=== PATIENT | female | born 2005 | race Caucasian/White ===

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

== ENCOUNTER 2024-06-06 18:00 | Outpatient (RCR) | payer OTHER, SELFPAY ==
--- NOTE | 2024-05-04 15:35 | HP.PTEVAL_ITS ---
Patient's Visit Information Visit Information Visit Information: MELI WHITTAKER is a 19 year old F referred to Physical Therapy by JOEY LAFLEUR with a diagnosis of COMPLEX TEAR LAT MENISCUS L KNEE. S/P MENISECTOMY 04/08/24. Date of Evaluation: 05/02/24 Physical Therapist: Teresa Reyes, PT, Cert MDT Visit Plan Frequency: 2x /Week Duration: 4-6 Weeks Plan: MONITOR INCISIONS EACH VISIT UNTIL FULLY HEALED. L KNEE ESTIM, CP AND VASO NEEDED FOR PAIN AND EDEMA CONTROL. L LE OPEN AND CLOSED CHAIN ROM AND STRENGTHENING. CORE STRENGTHEING. GAIT TRAINING AND HEP INSTRUCTION. Subjective Subjective: Work/Leisure: STUDENT AT THE [employer]. FROM [place]. [employer] Present symptoms: ANTERIOR AND POSTERIOR L KNEE PAIN, DISTAL ANTERIOR THIGH PAIN, HARPER PAIN AND CALF PAIN. DENIES NUMBNESS AND TINGLING. L KNEE SWELLING. Present since: DEC 27 2023 Pain Scale: WORST 7/10, LEAST 1/10 Currently: 3-4/10 Is it getting better, worse or staying the same: PAIN IS STAYING THE SAME. MOBILITY IS GETTING BETTER. Commenced as a result of: PLAYING [employer] AT SCHOOL. DURING PRACTICE FELT A BUBBLE UNDER KNEE CAP AND TWO DAYS LATER DURING SCRIMMAGE TWISTED KNEE AND FELT A POP. Symptoms at onset: A LOT OF PAIN AND SWELLING. Worse: PROLONGED WALKING, PROLONGED STATIONARY POSITIONS. Better: FREQUENT CHANGE OF POSITION, ICE, IBUPROFEN, MVMT. Disturbed sleep: NO Previous history/Previous treatment: NO PRIOR INJURIES Treatment this episode: MENISECTOMY 04/08/24. PT X 3 VISITS IN [place] AFTER JOSE M RUIZ. OTC ADVIL. Gait: INDEP GAIT WITHOUT AD. DENIES LIMP. HAS NOT TRIED JOGGING OR RUNNING. GOING DOWN STEPS IN THE MORNINGS ESPECIALLY IS DIFFICULTY. DOING GOOD GOING UP. RESTRICTIONS: DENIES ANY PHYSICIAN RESTRICTIONS. NO SURGICAL FOLLOW UPS SCHEDULED - RELEASED TO FULL ACTIVITY IN A FEW WEEKS. PMH/Recent major surgery: SLEEP APNEA. Objective Objective: GAIT: THIS PATIENT AMBULATES INDEP'LY INTO PT TODAY WITHOUT ANY AD'S OR LOB. SYMMETRICAL WB JOSÉ ANTONIO LE'S AND GOOD CADANCE. GOOD HEEL/TOE PATTERNING. TU.13 Girth L Patella 48cm (47.5 cm R). Girth 6 inch suprapatellar 63 cm Girth 6 inch below patella 42 cm L knee AROM: 0-0-126 deg flex Left LE strength hip flexion 30.0 LBS, abduction 12.9 LBS , extension 42.3 LBS, knee flexion 30.1 LBS, knee extension 21.2 LBS, ankle DF 5/5 Right LE strength hip flexion 44.8 LBS, abduction 22.9 LBS, extension 50.1 LBS, knee flexion 42 LBS, knee extension 36.6 LBS, ankle 5/5 Sensory deficit: JOSÉ ANTONIO LE LIGHT TOUCH SENSATION IS GROSSLY INTACT AND SYMMETRICAL OTHER: Steps: NT Palpation: PATIENT HAS MILD SWELLING L KNEE COMPARED TO R. LATERAL [place] IS NOT KNITTED TOGETHER YET BUT NO OBSERVABLE DRAINAGE TODAY. PATIENT REPORTS IT DID HAVE DRAINAGE BUT SEEMS TO HAVE RESOLVED. APPARENTLY TOOK PICTURES AND SENT TO PARENTS TO HELP HER MONITOR. REVIEWED SIGNS OF INFECTION WITH PATIENT TODAY AND INSTRUCTED HER TO MONITOR CLOSELY AND SEEK MEDICAL ATTENTION RIGHT AWAY IF SIGNS APPEAR. PATIENT COMMUNICATED A GOOD UNDERSTANDING. ALSO RECOMMENDED FOLLOWING ADVISE OF SURGEON TO OINTMENTS TO APPLY/NOT APPLY. PATIENT AGREEABLE. TREATMENT: REVIEWED HEP GIVEN BY OUT-PATIENT PT PRIOR TO RETURNING TO SCHOOL. HEP INCLUDING STANDING HS CURLS, HIP HATERS - SDLY HIP ABD WITH EXTENSION, BRIDGE HOLDS, SIDE PLANKS ON KNEES, SEATED LAQ'S AND STANDING LATERAL BAND WALKS. PATIENT REPORTS COMPLIANCE UNTIL ABOUT A WEEK AGO WHEN SCHOOL STARTED. ENCOURAGED PATIENT TO RESUME EX'S THIS WEEK TOLERATED IN PREPARATION FOR STARTING OUT-PATIENT PT. PATIENT AGREEABLE. Balance/Special Test Scores Lower Extremity Functional Score: 42 Goals Goal 1:: DECREASE C/O L KNEE PAIN BY AT LEAST 80% WITH ADL'S Goal Time Frame: 6-8 Weeks Goal 2:: INCREASE FUNCTIONAL ROM OF LLE TO SYMMETRICAL WITH R LE TO HELP PATIENT RETURN TO PLOF Goal Time Frame: 6-8 Weeks Goal 3:: INCREASE FUNCTIONAL STRENGTH OF LLE TO WITHIN 85% OF R LE TO HELP PATIENT RETURN TO PLOF Goal Time Frame: 6-8 Weeks Goal 4:: PATIENT WILL BE ABLE TO ASCEND AND DESCEND STEPS RECIPROCALLY WITHOUT HR WITHOUT LIMITATION Goal Time Frame: 2-4 Weeks Goal 5:: INDEP HEP AT DISCHARGE FOR CONTINUED IMPROVEMENT ONCE FORMAL PHYSICAL THERAPY CONCLUDES. Goal Time Frame: 8-12 Weeks Rehabilitation Potential Physical Therapy Diagnosis: L LE PAIN, SWELLING, STIFFNESS AND WEAKNESS LIMITING ADL'S AND RECREATIONAL FUNCTION S/P MENISECTOMY 04/08/24 Rehabilitation Potential: Good Anticipated Interventions Patient/Client Instruction: Educate patient on: Condition, Plan of Care and Risk Factors For the Purpose of:: To improve self management Therapeutic Exercise to Include: Strength training, Balance training, Coordination, Flexibilty training, Gait and locomotor training and Neuromotor development For the Purpose of:: To decrease swelling/inflammation, To increase ROM, To improve muscle performance and motor function, To increase tolerance to activity/condition/position, To improve ability of physical actions for home/community/work/leisure, To improve gait and locomotor functions, To increase flexibility/ROM, To improve endurance and To improve safety with gait TENS: Yes IF ES: Yes Cryotherapy (ice pack, ice massage): Yes Vasopneumatic device: Yes For the Purpose of:: To decrease pain, To decrease swelling/inflammation and To improve nutrient delivery to tissue Text: Thank you for the opportunity to evaluate your patient. For Medicare and Medicare HMO plans, please review the plan of care and approve it. It will need to be FAXED BACK to us at [phone] for Medicare purposes. For Medicare only, by signing this I certify the plan of care. Please let me know if there are questions or concerns regarding this plan of care. Physician Signature: Date:
== END 2024-06-06 19:00 | disposition home or self-care (01) ==
LOC: PT 18:00
PROVIDERS: PCP Family Medicine
DX: S83.272D Complex tear of lateral meniscus, current injury, left knee, subsequent encounter (principal)
CPT/HCPCS: 97016; 97110; 97161; 97530